=== PATIENT | female | born 1965 | race American Indian/Alaskan Native ===

== ENCOUNTER 2016-12-16 09:46 | Emergency (ER) | payer SELFPAY ==
[2016-12-16 10:37] LABS: Bacteria,Urine 2+ /HPF (Negative); Bilirubin,Urine NEG (Negative); Blood,Urine LG (Negative); Ketones,Urine NEG (Negative); Leukocyte Esterase,Urine LG (Negative); Mucus,Urine 3+ /HPF; Nitrite,Urine POS (Negative); Urobilinogen,Urine < 2.0 mg/dL (<2.0)
[2016-12-16] MEDS ORDERED: NACL 0.9% 1000 ML 1,000 ML IV ONE (22:59)
[2016-12-16] MEDS ORDERED: ZOFRAN IV ONE (22:59)
[2016-12-16] MEDS ORDERED: SUBLIMAZE IV ONE (22:59)
[2016-12-16] MEDS ORDERED: TORADOL IV ONE (22:59)
--- NOTE | 2016-12-16 23:06 | Emergency Department Report ---
HPI - General Chief Complaint: Abdominal Pain Time Seen by Provider: 12/16/16 22:37 - HPI HPI: Room 17 The patient is a 51-year-old female presenting with a chief complaint of left flank pain. The patient states for the past 3 days she is a sharp pain in her left flank. Patient does admit to nausea vomiting. Patient denies dysuria or hematuria. Patient denies fever. The patient states her symptoms feel similar to a time she had a urinary tract infection years ago. The patient currently gives her pain a score of 8/10 Location: Left Flank Duration: 3 days Quality: Sharp Severity: 8/10 Modifying factors: [see above] Context: [see above] Mode of transportation: [not driving] ED Past Medical Hx - Past Medical History Previous Medical History?: No - Surgical History Past Surgical History?: No - Family History Family history: no significant - Social History Smoking Status: Former Smoker Substance Use Type: None ED Review of Systems ROS: Stated complaint: LT SIDE PAIN Other details as noted in HPI Comment: All other systems reviewed and negative Constitutional: denies: chills, fever Eyes: denies: eye pain, eye discharge, vision change ENT: denies: ear pain, throat pain Respiratory: denies: cough, shortness of breath, wheezing Cardiovascular: denies: chest pain, palpitations Endocrine: no symptoms reported Gastrointestinal: abdominal pain Genitourinary: denies: urgency, dysuria, discharge Musculoskeletal: back pain Skin: denies: rash, lesions Neurological: denies: headache, weakness, paresthesias Psychiatric: denies: anxiety, depression Hematological/Lymphatic: denies: easy bleeding, easy bruising Physical Exam - Physical Exam Vital Signs: Vital Signs 12/16/16 09:54 Temperature 98.5 F Pulse Rate 120 H Respiratory 24 Rate Blood Pressure 156/101 O2 Sat by Pulse 99 Oximetry Physical Exam: GENERAL: The patient is well-developed well-nourished female in a wheelchair appearing be in moderate discomfort HEENT: Normocephalic. Atraumatic. Extraocular motions are intact. NECK: Supple. Trachea midline CHEST/LUNGS: Clear to auscultation. There is no respiratory distress noted. HEART/CARDIOVASCULAR: Regular. There is tachycardia. There is no gallop rub or murmur. ABDOMEN: Abdomen is soft, mild discomfort to the epigastric and left side. There is no rebound or guarding. Patient has normal bowel sounds. There is no abdominal distention. SKIN: There is no rash. There is no edema. There is no diaphoresis. NEURO: The patient is awake, alert, and oriented. The patient is cooperative. The patient has normal speech MUSCULOSKELETAL: There is left CVA tenderness. There is no evidence of acute injury. ED Course Vital Signs 12/16/16 09:54 Temperature 98.5 F Pulse Rate 120 H Respiratory 24 Rate Blood Pressure 156/101 O2 Sat by Pulse 99 Oximetry - Consultations Consultation #1: 12/17/16 00:56 [place] transfer line paged 12/17/16 01:[address] Tilley- will accept patient in transfer ED Medical Decision Making - Lab Data Result diagrams: 12/16/16 23:05 12/16/16 23:05 Laboratory Tests 12/16/16 12/16/16 12/16/16 10:14 23:05 23:05 WBC 15.8 H RBC 4.21 Hgb 12.5 Hct 36.3 MCV 86 MCH 30 MCHC 34 RDW 13.5 Plt Count 119 L Seg Neutrophils % Director [employer] Sodium 138 Potassium 3.5 L Chloride 98.4 Carbon Dioxide 16 L Anion Gap 27 BUN 29 H Creatinine 2.2 H Estimated GFR 29 BUN/Creatinine Ratio 13.18 Glucose 78 Calcium 8.4 Total Bilirubin 1.0 AST 27 ALT 17 Alkaline Phosphatase 80 Total Protein 7.1 Albumin 3.3 L Albumin/Globulin Ratio 0.9 Urine Color Yellow Urine Turbidity Cloudy Urine pH 5.0 Ur Specific [place] 1.020 Urine Protein 30 mg/dl Urine Glucose (UA) Neg Urine Ketones Neg Urine Blood Lg Urine Nitrite Pos Urine Bilirubin Neg Urine Urobilinogen < 2.0 Ur Leukocyte Esterase Lg Urine WBC (Auto) 143.0 H Urine RBC (Auto) 37.0 U Epithel Cells (Auto) 5.0 Urine Bacteria (Auto) 2+ Urine Mucus 3+ - Radiology Data Radiology results: report reviewed (CT abdomen pelvis), image reviewed (CT abdomen/pelvis) CT abdomen and pelvis (read by radiologist)-mild left hydronephrosis and hydroureter down to a 3 mm stone in the mid left ureter. - Differential Diagnosis pyelonephritis, renal colic, diverticulitis, Critical care attestation.: If time is entered above; I have spent that time in minutes in the direct care of this critically ill patient, excluding procedure time. ED Disposition Clinical Impression: Acute left flank pain, Pyelonephritis, Renal colic on left side, Renal insufficiency Disposition: DC/TX ANOTHER TYPE HEALTHCARE Is pt being admited?: No Does the pt Need Aspirin: No Condition: Serious Instructions: Abdominal Pain (ED) Referrals: PRIMARY CARE, [Primary Care Provider] - 3-5 Days Time of Disposition: 01:10 (awaiting transport)
[2016-12-16] MEDS ORDERED: ROCEPHIN/NS 1 GM/50 ML 1 GM/50 ML BAG IV ONE (23:54)
[2016-12-17 00:02] LABS: Hematocrit 36.3 % (30.3-42.9); Hemoglobin 12.5 gm/dl (10.1-14.3); Mean Corpuscular HGB Conc 34 % (30-34); Mean Corpuscular Hemoglobin 30 pg (28-32); Mean Corpuscular Volume 86 fl (79-97); Platelet Count 119 K/mm3 (140-440); Red Blood Count 4.21 M/mm3 (3.65-5.03); Red Cell Distribution Width 13.5 % (13.2-15.2); White Blood Count 15.8 K/mm3 (4.5-11.0)
[2016-12-17 00:33] LABS: Albumin 3.3 g/dL (3.9-5); Albumin/Globulin Ratio 0.9 %; BUN/Creatinine Ratio 13.18; Calcium 8.4 mg/dL (8.4-10.2); Chloride 98.4 mmol/L (98-107); Potassium 3.5 mmol/L (3.6-5.0); Total Protein 7.1 g/dL (6.3-8.2)
--- NOTE | 2016-12-17 00:43 | Cat Scan Report ---
FINAL REPORT PROCEDURE: CT ABDOMEN PELVIS WO CON TECHNIQUE: Computerized axial tomography of the abdomen and pelvis was performed without intravenous contrast. This study is performed without intravascular contrast material and its sensitivity for abdominal and pelvic pathology, including neoplasms, inflammation, abscess, free fluid, thrombosis, arterial dissection and infarction, is reduced compared with a contrast enhanced study. HISTORY: left flank pain COMPARISON: No prior studies are available for comparison. FINDINGS: Visualized lower thorax: There is atelectasis in the left lower lung.. Liver: Normal size and attenuation. Spleen: Normal size and attenuation. Gallbladder and biliary system: Normal. Pancreas: Normal. Adrenals: Normal. Kidneys: Both kidneys have normal size. Mild left hydronephrosis and hydroureter down to a 3 millimeter stone in the mid left ureter. The right collecting system is normal. There is a 1 centimeter region of hypoattenuation in the posterior right renal cortex, a cyst is suspected.. GI tract: The stomach is normal. The small bowel has a normal caliber. No obstruction, ileus or enteritis. The cecum, appendix region and colon are normal.. Lymph nodes and mesentery: Normal. Vasculature: Normal. Bladder: Normal. Reproductive organs: No pelvic masses.. Peritoneum: No free fluid.. Musculoskeletal structures: No significant abnormality. Other: None. IMPRESSION: Mild left hydronephrosis and hydroureter down to a 3 millimeter stone in the mid left ureter..
[2016-12-17] MEDS ORDERED: NACL 0.9% 1000 ML 1,000 ML IV ONE (01:05)
[2016-12-17 02:12] LABS: Blastocytes % (Manual) 0 %; Eosinophils % (Manual) 0 % (0.0-4.3)
[2016-12-17 02:13] LABS: Diff Status Complete; Giant Platelets Rare; Platelet Estimate Appears Decreased; RBC Morphology Normal; Smudge Cells Few; Toxic Vacuolation Few
[2016-12-17 03:14] VITALS: BP 96/55
== END 2016-12-17 03:20 | disposition other institution (70) ==
LOC: ED 09:46
DX: N12 Tubulo-interstitial nephritis, not specified as acute or chronic (principal); N23 Unspecified renal colic; N28.9 Disorder of kidney and ureter, unspecified; Z87.891 Personal history of nicotine dependence
CPT/HCPCS: 36415; 74176; 80053; 81001; 85007; 85025; 87040; 87076; 87086; 87186; 96361; 96365; 96375; 99285; J0696; J1885; J2405; J3010; J7030

== ENCOUNTER 2017-09-01 11:45 | Emergency (ER) | payer SELFPAY ==
[2017-09-01 12:29] VITALS: BP 148/96
--- NOTE | 2017-09-01 14:43 | Emergency Department Report ---
Eye Injury/Foreign Body - HPI Duration: 1 month Eye Location: Right (right lower eyelid) Severity: Severe (04/01) Tetanus Status: Up to Date Eye Symptoms: Eye Pain: No (patient with pain to right lower eyelid.), Blurred Vision: No, Eye Redness: Yes (right lower eyelid), Grinding/Hammering Metal: No , Used Eye Protection: No, Contact Lens Use: No, Recalls Injury: No, Photophobia : No Other History: He reports that she has had redness and swelling to her right upper and lower eyelid 1 month she's had right upper lid got better but the right lower eyelid now with small bump that is painful when she blinks or touch. She denies any loss of vision or blurred vision. Denies any sensitivity to light. Denies any injury. She has not been seen by anyone for this issue. She says she is taking [id number] pain medication. She says that the redness seemed to be worse then to her lower lid. Denies any fever or chills. Immunizations up-to-date ED Review of Systems ROS: Stated complaint: EYE PAIN Other details as noted in HPI Comment: All other systems reviewed and negative Constitutional: no symptoms reported Eyes: other (right lower eyelid pain). denies: eye pain, eye discharge, vision change ENT: denies: ear pain, throat pain, dental pain, congestion Respiratory: no symptoms reported Cardiovascular: denies: chest pain, palpitations, dyspnea on exertion, orthopnea , edema, syncope, paroxysmal nocturnal dyspnea Gastrointestinal: denies: abdominal pain, nausea, vomiting, diarrhea Musculoskeletal: denies: back pain, joint swelling, arthralgia, myalgia Skin: denies: rash Neurological: denies: headache, weakness, numbness, paresthesias, confusion, abnormal gait, vertigo ED Past Medical Hx - Past Medical History Previous Medical History?: Yes Additional medical history: Kidney pain - Surgical History Past Surgical History?: Yes Additional Surgical History: Left Kidney stent - Family History Family history: hypertension - Social History Smoking Status: Never Smoker Substance Use Type: None - Medications Home Medications: Home Medications Medication Instructions Recorded Confirmed Last Taken Type Gentamicin 0.3% Ophth Oint 1 applicatio OP Q8H 7 Days #1 tube 09/01/17 Unknown Rx Eye Injury Exam - Exam General: Vital signs noted. No distress. Alert and acting appropriately. - Visual Acuity Right Vision Acuity Degree: 20/20 Eye Exam: Both EOMI, Neither Injection, Neither Chemosis, Neither Abnormal Pupil , Neither Eye Foreign Body (lower lid with redness, positive induration to inner canthus, tender to palpate.), Neither Lid Foreign Body, Neither Mucous Discharge, Neither Purulent Discharge, Neither Photophobia Left Vision Acuity Degree: 20/20 Eye Exam: Both EOMI, Neither Injection, Neither Chemosis, Neither Abnormal Pupil , Neither Eye Foreign Body, Neither Lid Foreign Body, Neither Mucous Discharge, Neither Purulent Discharge Bilateral Vision Acuity Degree: 20/30 Exam: EXT: No Clubbing, cyanosis or edema, +2 pulses to all extremities no neurovascular compromise. Skin: Clean, dry and intact, no rash or lesions. CV : S1, S2. Regular rate rhythm negative murmur. Psych: Normal mood and behavior ED Course Vital Signs 09/01/17 12:24 Temperature 98.1 F Pulse Rate 91 H Respiratory 18 Rate Blood Pressure 148/96 O2 Sat by Pulse 100 Oximetry - Reevaluation(s) Reevaluation #1: 09/01/17 16:06 Patient is stable. Visual acuity is stable ED Medical Decision Making - Medical Decision Making ED course: Patient here complaining and off right lower eyelid redness and swelling 1 month without any injury. Physical findings for stye to right lower eyelid. Visual acuity is stable. Patient has no change in vision and no pain in eye except for eyelid which is painful to touch or when she blinks. I discussed patient that she has a stye and she will need to place warm compresses the site 3 times a day along with antibiotic ophthalmic ointment. Patient voiced understanding of discharge instruction and treatment plan and discharged home in stable condition with prescription for gentamicin ophthalmic and to follow up with poacher operator in 2-3 days Critical care attestation.: If time is entered above; I have spent that time in minutes in the direct care of this critically ill patient, excluding procedure time. ED Disposition Clinical Impression: Hordeolum externum of right lower eyelid, Pain of right eyelid Disposition: - TO HOME OR SELFCARE Is pt being admited?: No Does the pt Need Aspirin: No Condition: Stable Instructions: Stye (ED) Additional Instructions: Please apply warm compresses to right lower eyelid 3 times a day. Apply antibiotic ointment to right lower lid 3 times a day. After each warm compresses, apply thin ribbon of antibiotic ointment to eyelid 7 days. Please keep affected area clean and dry Followup with poacher operator in 2-3 days Prescriptions: Gentamicin 0.3% Ophth Oint 1 applicatio OP Q8H 7 Days #1 tube Referrals: ROSELYN LAYTON MD [Staff Physician] - 2-3 Days PRIMARY CARE, [Primary Care Provider] - 2-3 Days [facility] [Outside] - 2-3 Days Forms: Work/School Release Form(ED)
== END 2017-09-01 16:32 | disposition home or self-care (01) ==
LOC: ED 11:45
DX: H00.012 Hordeolum externum right lower eyelid (principal)
CPT/HCPCS: 99282